=== PATIENT | female | born 1965 | race Caucasian/White ===

== ENCOUNTER 2017-05-05 10:33 | Emergency (ER) | payer SELFPAY ==
[2017-05-05 11:52] VITALS: BP 144/82
[2017-05-05 11:54] LABS: Hematocrit 54.7 % (37.0-47.0); Hemoglobin 18.2 gm/dL (12.5-16.0); Mean Corpuscular Hemoglobin 27.6 pg (27-31); Mean Corpuscular Hgb Conc 33.3 g/dl (32-36); Neutrophil # 2.4 K/mm3 (1.3-6.0); Neutrophil % 51.8 % (42-75.0); Platelet Count 234 K/mm3 (150-450); Red Blood Count 6.59 M/mm3 (4.2-5.4); Red Cell Distribution Width 13.9 % (11.5-14.0); White Blood Count 4.6 K/mm3 (4.0-10.5)
[2017-05-05 12:13] LABS: Albumin * 3.6 gm/dl (3.4-5.0); Anion Gap 13.6 mmol/L (6.8-13.8); BUN/Creatinine Ratio 13.7 (9.0-21.6); Bilirubin, Total 0.2 mg/dL (0.0-1.1); Ca. Corrected For Albumin 9.5 mg/dL (8.4-10.2); Calcium * 9.5 mg/dL (7.9-10.9); Carbon Dioxide 22.5 mmol/L (24-32.6); Potassium 4.1 mmol/L (3.4-4.6); Total Protein 7.8 gm/dL (6.2-8.2)
--- NOTE | 2017-05-05 12:21 | ERNOTE ---
Medical Problem HPI - General Chief Complaint: Flu Symptoms Time Seen by Provider: 05/05/17 11:05 Source: patient, family Exam Limitations: no limitations - Immun/Allergies/Home Medications Immunizations: IMMUNIZATION HX Immunizations Up to Date Yes History of Influenza Vaccine No Hx Pneumococcal Vaccination No Allergies/Adverse Reactions: Allergies No Known Allergies Allergy (Unverified 05/05/17 11:13) Home Medications: HOME MEDICATIONS Azithromycin [Zithromax] 250 mg PO DAILY #6 tablet 05/05/17 [Last Taken Unknown] Codeine Phosphate/Guaifenesin [Cheratussin AC Syrup] 5 ml PO QID PRN #240 liquid 05/05/17 [Last Taken Unknown] - History of Present History Narrative: Patient presents with 4 days of a cough, sore throat and congestion. Patient states that there is considerable pain every time she coughs in the chest. Timing: constant Severity: moderate Review of Systems - Review of Systems Constitutional: Present: See HPI EYE: Present: no symptoms reported ENT: Present: nose congestion, sore throat Respiratory: Present: See HPI, shortness of breath, cough Cardiology: Present: no symptoms reported Gastrointestinal/Abdominal: Present: no symptoms reported Genitourinary: Present: no symptoms reported Musculoskeletal: Present: no symptoms reported Skin: Present: no symptoms reported Neurological: Present: no symptoms reported Endocrine: Present: no symptoms reported Hematologic/Lymphatic: Present: no symptoms reported Psych: Present: no symptoms reported - Patient's Past Medical History Patient History - Medical: No pertinent hx Patient History - Cardiac/Respiratory: No pertinent hx Patient History - Cancer: No Hx of Cancer Patient History - Surgical Procedures: No surgical history Patient History - Other: None - Social History Living Situations: home Psych History: No pertinent hx Smoking Status: Current every day smoker Have you smoked in the past 12 months: Yes Alcohol Use: none Drug Use: none - Immunizations Immunizations Up to Date: Yes Hx Pneumococcal Vaccination: No History of Influenza Vaccine: No Physical Exam - Physical Exam General Appearance: Present: wd/wn, alert, moderate distress Head Exam: Present: normal inspection, no evidence of injury Eye Exam: Normal inspection: bilateral, PERRL: bilateral Ears, Nose, Throat: Present: nasal congestion, pharyngeal erythema Neck: Present: normal inspection, nontender Respiratory: Present: no accessory muscle use, chest nontender, respiratory distress, other - final course breath sounds Cardiovascular/Chest: Present: regular rate, rhythm, no murmur, normal peripheral pulses Gastrointestinal/Abdominal: Present: normal bowel sounds, nontender, nondistended, soft, no organomegaly Rectal Exam: Present: deferred Back Exam: Present: normal inspection, normal range of motion Extremity Exam: Present: normal inspection, non-tender, no edema, normal range of motion Neurological Exam: Present: alert, oriented, normal mood/affect Skin Exam: Present: normal color, warm/dry Lymphatic Exam: Present: no adenopathy ED Progress - Results and Orders Patient's Lab Results:: I have reviewed the patient's lab results. - Vital Signs Patient's Vital Signs:: I have reviewed the patient's vital signs. Vital Signs: Vital Signs 05/05/17 05/05/17 11:11 11:51 Temperature 36.5 C Pulse Rate 84 87 Respiratory 16 16 Rate Blood Pressure 150/95 144/82 O2 Sat by Pulse 99 97 Oximetry - X-Ray X-Ray #1 X-Ray: chest Interpretation: Reviewed by me - Progress/Reassessment Chief Complaint: Flu Symptoms Departure Clinical Impression: Influenza A - Departure Disposition: Home self-care Condition: Good Instructions: Influenza, Adult, [id number] Referrals: Artur Lozada MD [Primary Care Provider] - Prescriptions: Azithromycin [Zithromax] 250 mg PO DAILY #6 tablet Codeine Phosphate/Guaifenesin [Cheratussin AC Syrup] 5 ml PO QID PRN #240 liquid PRN Reason: Cough
[2017-05-05] MEDS ORDERED: HYDROcodone/ACETAMINOPHEN 1 EACH TABLET PO ONE (13:45)
[2017-05-05] MEDS ORDERED: HYDROcodone/ACETAMINOPHEN 1 EACH TABLET ONE (13:53)
== END 2017-05-05 14:53 | disposition home or self-care (01) ==
LOC: ER 10:33
DX: F17.200 Nicotine dependence, unspecified, uncomplicated